=== PATIENT | female | born 1930 | race Caucasian/White ===

== ENCOUNTER 2021-09-23 10:26 | Emergency (ER) | payer OTHER ==
[~2021-09-23] VITALS: Ht 154.9 cm; Wt 69.9 kg
[2021-09-23 10:38] VITALS: BP_SYST 133
--- NOTE | 2021-09-23 10:38 | NUR ---
Patient to ER bed 1 for evaluation. Side rails up. Report given to Alexander BURRIS.
--- NOTE | 2021-09-23 12:05 | NUR ---
Pt moved to H1 for continuation of care
--- NOTE | 2021-09-23 12:05 | NUR ---
Received pt to the hallway. Pt denies pain, [id number]. Repositioned and assisted to restroom steady with assistance . Pt is sitting in a wheel chair at this time
[2021-09-23 12:42] VITALS: BP_SYST 133
--- NOTE | 2021-09-23 12:42 | NUR ---
Patient given written and verbal discharge instructions and verbalizes understanding. ER MD discussed with patient the results and treatment provided. Patient in stable condition. ID arm band removed. Opportunity for questions provided and answered. Medication side effect fact sheet provided.
== END 2021-09-23 12:42 | disposition home or self-care (01) ==
LOC: SED 10:26
DX: S30.0XXA Contusion of lower back and pelvis, initial encounter (principal); R54 Age-related physical debility; E11.9 Type 2 diabetes mellitus without complications; I10 Essential (primary) hypertension; W01.0XXA Fall on same level from slipping, tripping and stumbling without subsequent striking against object, initial encounter; Y93.89 Activity, other specified; Y92.89 Other specified places as the place of occurrence of the external cause; Y99.8 Other external cause status
CPT/HCPCS: 72110; 72170-TC; 99284

== ENCOUNTER 2021-10-28 10:31 | Emergency (ER) | payer OTHER ==
[~2021-10-28] VITALS: Ht 152.4 cm; Wt 64.9 kg
[2021-10-28 10:55] VITALS: BP_SYST 122
--- NOTE | 2021-10-28 11:15 | NUR ---
Patient to ER bed 7 to gown for evaluation. Side rails up. Report given to KIM JULIEN.
--- NOTE | 2021-10-28 11:30 | NUR ---
ER at bedside examining patient.
--- NOTE | 2021-10-28 11:49 | NUR ---
Pt presents to the ER BIB self from home. CC dysuria R/T frequent UTI. Pt states burning while urinating started this 399. Also noted 1 episode of diarrhea. Denies N/V. Pt is sitting in a chair preferred over gurney. NAD, afebrile, unlabored even breathing. PMHx Diabetes HX of falls
--- NOTE | 2021-10-28 12:00 | NUR ---
PT ambulates with cane and minimal assistance to the restroom. Provided plentiful urine sample. Pt sitting on chair in room 7 awaiting results.
[2021-10-28] MEDS ORDERED: CEPH-548 PO (12:54)
--- NOTE | 2021-10-28 13:19 | NUR ---
Patient given written and verbal discharge instructions and verbalizes understanding. ER MD discussed with patient the results and treatment provided. Patient in stable condition. ID arm band removed. Rx of Cephelexin given. Patient educated on hygiene and UTI prevention. Opportunity for questions provided and answered. Medication side effect fact sheet provided.
[2021-10-28 13:21] VITALS: BP_SYST 122
[2021-10-28 14:47] LABS: BILIRUBIN,URINE NEGATIVE (NEGATIVE); BLOOD, URINE 1+ (NEGATIVE); CLARITY/URINE SL CLOUDY (CLEAR); COLOR,URINE YELLOW (YELLOW); GLUCOSE,URINE NEGATIVE (NEGATIVE); KETONES,URINE NEGATIVE (NEGATIVE); LEUKOCYTE ESTERASE ,URINE 3+ (NEGATIVE); NITRITE, URINE NEGATIVE (NEGATIVE); PROTEIN URINE NEGATIVE (NEGATIVE); UROBILINOGEN,URINE 0.2 (0.2-1.0)
[2021-10-28 15:23] LABS: BACTERIA,URINE MODERATE /HPF (None Seen)
== END 2021-10-28 13:19 | disposition home or self-care (01) ==
LOC: SED 10:31
DX: N39.0 Urinary tract infection, site not specified (principal); R35.0 Frequency of micturition; R30.0 Dysuria; I10 Essential (primary) hypertension; Z79.899 Other long term (current) drug therapy
CPT/HCPCS: 81000; 87086; 99283

== ENCOUNTER 2022-04-29 12:09 | Emergency (ER) | payer OTHER ==
[~2022-04-29] VITALS: Ht 152.4 cm; Wt 68.0 kg
[~2022-04-29 12:09] MED LIST: CEPH-548 PO
[2022-04-29 12:18] VITALS: BP_SYST 146
--- NOTE | 2022-04-29 12:45 | NUR ---
MD ATKINSON IN TRIAGE FOR MSE.
[2022-04-29] MEDS ORDERED: CORTEARS EACH EAR (12:52)
[2022-04-29 12:57] VITALS: BP_SYST 137
--- NOTE | 2022-04-29 12:57 | NUR ---
Patient given written and verbal discharge instructions and verbalizes understanding. ER MD discussed with patient the results and treatment provided. Patient in stable condition. ID arm band removed. IV catheter removed intact and dressing applied, no active bleeding. Rx of CORTISPORIN EAR DROPS given. Patient educated on pain management and to follow up with PMD. Pain Scale 0/10. Opportunity for questions provided and answered. Medication side effect fact sheet provided.
== END 2022-04-29 12:57 | disposition home or self-care (01) ==
LOC: SED 12:09
DX: H72.91 Unspecified perforation of tympanic membrane, right ear (principal); E11.9 Type 2 diabetes mellitus without complications; I10 Essential (primary) hypertension; Z88.0 Allergy status to penicillin; Z79.899 Other long term (current) drug therapy
CPT/HCPCS: 99283